=== PATIENT | male | born 1990 | race Two or more races ===

== ENCOUNTER 2017-05-15 05:45 | Emergency (ER) | payer SELFPAY ==
--- NOTE | ~2017-05-15 | ER ---
PATIENT'S NAME: [facility] AGE: 26 Y [address] ROOM: [place] [address] LOCATION: [facility] ADMIT DATE: 05/15/2017 ER/Outpatient Report DISCHARGE DATE: 05/15/2017 FAMILY PHYSICIAN: PHYSICIAN, NO ATTENDING PHYSICIAN: Farhad Prakash Time of Arrival: 0545 hours. Time Seen: 0612 hours. IDENTIFICATION: A 26-year-old male. CHIEF COMPLAINT: Abdominal pain. HISTORY OF PRESENT ILLNESS: The patient is a 26-year-old male who speaks some Tajik, his co-worker also speaks Tajik. 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 He came to work at 3:00 a.m. this morning. Prior to coming, he ate a burrito around 2:45 a.m. with a lot of chili powder and on the way here developed severe epigastric upper abdominal pain, nauseous and vomited x1. At that time, he had a little funny feeling in his head and states he passed out for about 10 seconds. His headache has resolved. His funny feeling has completely resolved. His epigastric pain is improved after vomiting, still present some but improved. He had this dizzy funny feeling happened one other time several years ago. The epigastric pain is new. ALLERGIES: NO KNOWN DRUG ALLERGIES. CURRENT MEDICATIONS: None. MEDICAL PROBLEMS: Denies no prior surgeries or hospitalizations. SOCIAL HISTORY: The patient lives in [place]. He is . He works laying concrete. Tobacco use, denies. Alcohol use, denies. Drug use, denies. REVIEW OF SYSTEMS: All systems reviewed and negative other than what is noted in the HPI. The patient denies any headache. No vision trouble. No numbness or tingling. No chest pain. No cough or shortness of breath. PATIENT'S NAME: [facility] AGE: 26 Y [address] ROOM: [place] [address] LOCATION: [facility] ADMIT DATE: 05/15/2017 ER/Outpatient Report DISCHARGE DATE: 05/15/2017 FAMILY PHYSICIAN: PHYSICIAN, NO ATTENDING PHYSICIAN: Farhad Prakash PHYSICAL EXAMINATION: VITAL SIGNS: Weight 74.1 kg, blood pressure 126/77, pulse 46, respirations 18, temperature 96.1, and saturations 99% on room air. GENERAL: A 26-year-old male, in no acute distress. HEENT: Head: Normocephalic, atraumatic. Eyes: Pupils equal and reactive to light and accommodation. Extraocular movements intact. Nose: Mucosa pink. No lesions or drainage. Mouth: No lesions. Pharynx benign. NECK: Supple. No lymphadenopathy. LUNGS: Clear to auscultation. Breath sounds are equal. HEART: Regular rate and rhythm. No murmur, rub, or gallop. ABDOMEN: Bowel sounds present. Soft, nondistended. Tender to palpation in the epigastric region. No rebound or guarding. SKIN: [place], warm, and dry. No lesions or rashes noted. NEURO: The patient is alert. No cranial nerve defects. Motor strength 5/5 throughout. Sensation is intact to light touch. LABORATORY WORK: Sodium 140, potassium 3.8, chloride 107, CO2 of 28, BUN 16, creatinine 0.9, and blood sugar 105. Liver enzymes elevated. Lipase 158, amylase 64. CPK 514, CK-MB 2.9, and troponin I less than 0.040. Hemoglobin 13.8, hematocrit 40.6, platelets 237, and white count 8.7 with a normal differential. EKG: Sinus bradycardia at 43 beats per minute. No acute ST elevation or depression. EMERGENCY ROOM COURSE: The patient was given a GI cocktail with complete resolution of his pain. He was given Protonix 20 mg p.o. IMPRESSION: Gastritis. PLAN: Diet as tolerated. Rest and fluids. Prilosec [id number] 20 mg daily and follow up with his physician of choice in 2 to 7 days. Follow up sooner if any problems or concerns. The patient does understand and agree, and all questions have been answered. NATIVIDAD MENDOZA MD CAR/modl PAT[facility] AGE[facility] 26 Y [address] ROOM: [place], [place] [address] LOCATION: [facility] ADMIT DATE: 05/15/2017 ER/Outpatient Report DISCHARGE DATE: 05/15/2017 FAMILY PHYSICIAN: KALEN HANEY ATTENDING PHYSICIAN: Farhad Prakash /[id number] d: 05/16/17 0102 t: 05/18/17 0820, OUTPATIENT REPORT
[2017-05-15 06:37] LABS: BASOPHIL # 0.1 K/uL (0.0-0.2); BASOPHIL % 0.6 %; EOSINOPHIL # 0.1 K/uL (0.0-0.5); EOSINOPHIL % 1.6 %; HEMATOCRIT 40.6 % (37.0-53.0); HEMOGLOBIN 13.8 g/dL (12.0-17.0); IMMATURE GRANULOCYTE % 0.3 %; LYMPHOCYTE # 1.3 K/uL (0.8-4.0); LYMPHOCYTE % 14.4 %; MCH 30.4 pg (27.0-34.0); MCV 89.4 fl (83.0-98.0); MONOCYTE # 0.3 K/uL (0.0-1.0); MONOCYTE % 3.9 %; MPV 9.1 fl (9.4-12.4); NEUTROPHIL # (ANC) 6.9 K/uL (1.4-9.0); NEUTROPHIL % 79.2 %; NRBC % 0 /100WBC (0-0.00); PLATELET COUNT 237 K/uL (150-450); RBC 4.54 M/uL (4.00-6.00); RDW-CV 12.3 % (11.9-14.6); WBC 8.7 K/uL (4.0-11.0)
[2017-05-15 06:57] LABS: ALBUMIN 3.6 gm/dL (3.5-5.0); ALK PHOS 115 IU/L (33-138); ALT 36 IU/L (12-78); ANION GAP 8.8 (10.0-19.0); AST 28 IU/L (10-40); BLOOD UREA NITROGEN 16 mg/dL (6-24); CALCIUM 8.4 mg/dL (8.5-10.5); CHLORIDE 107 mMol/L (96-110); CO2 28 mMol/L (22-32); CPK 514 IU/L (35-332); CREATININE 0.9 mg/dL (0.6-1.3); ESTIMATED GFR (MDRD EQUATION) > 60; POTASSIUM 3.8 mMol/L (3.7-5.1); SODIUM 140 mMol/L (135-145); TOTAL BILIRUBIN 0.5 mg/dL (0.0-1.5); TOTAL PROTEIN 7.2 g/dL (6.0-8.4)
== END 2017-05-15 07:52 | disposition disaster alternative care site (69) ==
LOC: GMED 05:45
PROVIDERS: Family Medicine
DX: K29.70 Gastritis, unspecified, without bleeding (principal)